=== PATIENT | female | born 1960 | race Caucasian/White ===

== ENCOUNTER → 2017-09-24 | Outpatient (CLI) | payer BC ==
[~2017-09-24] MED LIST: ASP325T PO; ATOR40TA PO; CLOP75TA PO; MTP25TSR PO; PRAV80TA2 PO
--- NOTE | 2017-09-26 09:58 | Diagnostic Imaging Report ---
EXAMINATION: Bilateral screening mammogram 2D views with tomosynthesis. The current study was also evaluated with a Computer Aided Detection (CAD) system. INDICATION: Screening. PERSONAL HISTORY: No current complaints stated on the questionnaire. COMPARISON: No prior similar studies are available for comparison. FINDINGS: The breasts are composed of heterogeneously dense parenchyma which may decrease mammographic sensitivity. No mass, architectural distortion, or suspicious cluster of calcifications is seen. IMPRESSION: No mammographic evidence of malignancy. Annual screening mammograms are recommended. ACR BI-RADS Category 2: Benign findings. Result letter will be mailed to the patient. Note: At least 10% of breast cancer is not imaged by mammography. Dictated by: Dictated on workstation # [id number]
== END ==
LOC: RAD 15:34
PROVIDERS: ATTEND Nurse Practitioner Family
DX: Z12.31 Encounter for screening mammogram for malignant neoplasm of breast (principal)

== ENCOUNTER → 2022-04-24 | Outpatient (CLI) | payer BC ==
--- NOTE | 2022-04-24 10:52 | Diagnostic Imaging Report ---
INDICATION: Routine screening. COMPARISON: 09/24/2017. TECHNIQUE: 2D and 3D bilateral screening mammography was performed with CAD. FINDINGS: Both breasts are heterogeneously dense, limiting the sensitivity of mammography. The parenchymal pattern is stable. There are benign calcifications. No mass or malignant-appearing microcalcifications are seen. The axillae are unremarkable. IMPRESSION: No mammographic features suspicious for malignancy are identified. ACR BI-RADS Category 2: Benign findings. Result letter will be mailed to the patient. Note: At least 10% of breast cancer is not imaged by mammography. Dictated by: Dictated on workstation # [id number]
== END ==
LOC: RAD 07:30
PROVIDERS: ATTEND Nurse Practitioner Family
DX: Z12.31 Encounter for screening mammogram for malignant neoplasm of breast (principal)
CPT/HCPCS: 77063; 77067

== ENCOUNTER → 2023-08-14 | Outpatient (CLI) | payer MEDICARE, OTHER ==
[~2023-08-14] MED LIST changes: +CATHETER FLUSH 10 ML SYR IVP PRN; +REGADENOSON 0.4 MG/5 ML SYR IV ONE
[2023-08-14 09:18] VITALS: BP 149/98
--- NOTE | 2023-08-16 12:47 | STRESS TEST ---
DATE OF SERVICE: 08/14/2023 RESTING AND POST EXERCISE TECHNETIUM-99M TETROFOSMIN SPECT CT IMAGING ORDERING PHYSICIAN: Dr. Perez. PRIMARY PHYSICIAN: Dr. Cabrera. CLINICAL DIAGNOSIS: Coronary artery disease. Baseline images were carried out after injection of 10.49 mCi of technetium-99m tetrofosmin. This is followed by exercise on a treadmill. Jackson protocol was employed. After she had attained more than 85% of maximum predicted heart rate, 30.34 mCi of technetium-99m Tetrofosmin were injected and the exercise was continued for another minute. Exercise was stopped on account of fatigue. She exercised for a total of 6 minutes and 30 seconds. She attained 7.9 METS of workload and 96% of maximum predicted heart rate. Heart rate response to exercise was normal. Blood pressure response to exercise was somewhat hypertensive. Review of images at rest and following stress does not indicate any evidence of significant myocardial ischemia or infarction. Gated images show normal global left ventricular systolic function with normal regional wall motion. Left ventricular ejection fraction is calculated to be 78%. CONCLUSIONS: 1. No evidence of any significant myocardial ischemia or infarction on this study. 2. Normal regional wall motion. 3. Normal to hyperdynamic left ventricular systolic function with a calculated ejection fraction of 78%. Job ID: [id number] DocumentID: [id number] Dictated Date: 08/16/2023 10:01:41 Software Development Manager Date: 08/16/2023 12:45:00 Dictated By: CLAUDIO PEREZ MD; PABLO; FACP; FACC;
== END ==
LOC: CARD 07:03
PROVIDERS: ATTEND Internal Medicine Cardiovascular Disease
DX: I25.10 Atherosclerotic heart disease of native coronary artery without angina pectoris (principal)
CPT/HCPCS: 78452; 93017; A9502